=== PATIENT | female | born 1980 | race Two or more races ===

== ENCOUNTER 2018-06-26 13:32 | Emergency (ER) | payer SELFPAY ==
[~2018-06-26] VITALS: Ht 175.3 cm; Wt 113.4 kg
[2018-06-26 13:38] VITALS: BP 144/94
== END 2018-06-26 15:47 | disposition home or self-care (01) ==
LOC: ER 13:36
DX: R51 Headache (principal); R11.2 Nausea with vomiting, unspecified; V43.92XA Unspecified car occupant injured in collision with other type car in traffic accident, initial encounter; Y93.89 Activity, other specified; Y99.8 Other external cause status; Y92.410 Unspecified street and highway as the place of occurrence of the external cause
CPT/HCPCS: 70450